=== PATIENT | female | born 1950 | race African-American/Black ===

== ENCOUNTER 2022-02-02 15:53 | Emergency (ER) | payer SELFPAY ==
[~2022-02-02] VITALS: Ht 165.1 cm; Wt 100.0 kg
[2022-02-02 16:18] VITALS: BP 190/85
[2022-02-02] MEDS: HYDROcodone/APAP 5/325MG 1 TAB TABLET PO ONE (16:46)
--- NOTE | 2022-02-02 16:53 | PHYS DOC ---
Past Medical History Past Medical History: DVT Past Surgical History: No Surgical History Smoking Status: Never Smoker Alcohol Use: Heavy Additional Information: WINE DAILY General Adult EDM: Chief Complaint: LOWER EXT PAIN HPI: HPI: Patient is a 72 year old female with history of DVT to the left lower extremity currently not on blood thinners presented to the ED today complaining of 10 out of 10 left calf pain, symptoms have been going on for 2 weeks. Patient describes the pain as sharp and tight. Denies any fever. Denies any chest pain or shortness of breath. Review of Systems: Review of Systems: Constitutional: Denies fever or chills. [] Eyes: Denies change in visual acuity. [] HENT: Denies nasal congestion or sore throat. [] Respiratory: Denies cough or shortness of breath. [] Cardiovascular: Denies chest pain or edema. [] GI: Denies abdominal pain, nausea, vomiting, bloody stools or diarrhea. [] : Denies dysuria. [] Musculoskeletal: Reports left calf pain denies back pain Integument: Denies rash. [] Neurologic: Denies headache, focal weakness or sensory changes. [] [] Psychiatric: Denies depression or anxiety. [] Heart Score: C/O Chest Pain: N/A Risk Factors: Risk Factors: DM, Current or recent (<one month) smoker, HTN, HLP, family history of CAD, obesity. Risk Scores: Score 0 - 3: 2.5% MACE over next 6 weeks - Discharge Home Score 4 - 6: 20.3% MACE over next 6 weeks - Admit for Clinical Observation Score 7 - 10: 72.7% MACE over next 6 weeks - Early Invasive Strategies Current Medications: Current Medications Medications (Trade) Dose Ordered Sig/[facility] Start Time Stop Time Status Last Admin Dose Admin Acetaminophen/ Hydrocodone Bitart (Lortab 5/325) 1 tab 1X ONCE 02/02/22 16:15 02/02/22 16:40 DC 02/02/22 16:46 1 TAB Allergies: Allergies: Allergies Coded Allergies Type Severity Reaction Last Updated Verified No Known Drug Allergies 02/02/22 No Physical Exam: PE: Constitutional: Well developed, well nourished, no acute distress, non-toxic appearance. [] HENT: Normocephalic, atraumatic, bilateral external ears normal, oropharynx moist, no oral exudates, nose normal. [] Eyes: PERRLA, EOMI, conjunctiva normal, no discharge. [] Neck: Normal range of motion, no tenderness, supple, no stridor. [] Cardiovascular:Heart rate regular rhythm, no murmur [] Lungs & Thorax: Bilateral breath sounds clear to auscultation [] Abdomen: Bowel sounds normal, soft, no tenderness, no masses, no pulsatile masses. [] Skin: Warm, dry, no erythema, no rash. [] Back: No tenderness, no CVA tenderness. [] Extremities: Left lower extremity with no obvious deformity. Edema noted diffusely to the left lower extremity with warmth, positive Homans' sign to the LLE, full range of motion to the left lower extremity, +2 left pedal pulse. Cap refill less than 2 seconds in left lower extremity. Neurologic: Alert and oriented X 3, normal motor function, normal sensory function, no focal deficits noted. [] Psychologic: Affect normal, judgement normal, mood normal. [] Current Patient Data: Vital Signs: Vital Signs Date Time Temp Pulse Resp B/P (MAP) Pulse Ox O2 Delivery O2 Flow Rate FiO2 02/02/22 16:46 18 99 Room Air 02/02/22 16:18 98.2 88 190/85 (120) 98.2 EKG: EKG: [] Radiology/Procedures: Radiology/Procedures: [] Course & Med Decision Making: Course & Med Decision Making Pertinent Labs and Imaging studies reviewed. (See chart for details) This a 72-year-old female patient presenting to the ED today complaining of left calf pain, symptoms for 2 weeks. History of DVT. Venous Doppler of the left lower extremity is positive for venous thrombosis, sp tammy to Dr. Singleton. He requested we give patient Lovenox and discharge patient on Eliquis. Her blood pressure was also 190/85, patient states she has not had any doctors visit for a while and has not been aware of her blood pressure being high, she has no chest pain or headache. She was discharged to home and provided the doctors list for follow-up Bette Disclaimer: Bette Disclaimer: This electronic medical record was generated, in whole or in part, using a voice recognition dictation system. Departure Departure Impression: Primary Impression: DVT, lower extremity Qualified Codes: I82.432 - Acute embolism and thrombosis of left popliteal vein Additional Impression: High blood pressure Qualified Codes: I10 - Essential (primary) hypertension Disposition: HOME / SELF CARE / HOMELESS Condition: STABLE Patient Instructions: Deep Vein Thrombosis, Hypertension Additional Instructions: You have a blood clot in your left lower extremity. Please ensure you take the blood thinner as prescribed. Your blood pressure is also running high. Please establish care with a primary care doctor from the list provided in follow-up as soon as possible. Scripts Apixaban (ELIQUIS) 5 Mg Tablet 5 MG PO DAILY, #30 TAB Please give patient starter pack Prov: KARTHIK CLEMENS APRN 02/02/22 KARTHIK CLEMENS APRN February 02, 2022 16:53
[2022-02-02] MEDS ORDERED: APIX5TAB PO (18:54)
--- NOTE | 2022-02-03 07:48 | RAD ---
Left Lower Extremity Venous Doppler Ultrasound History: Reason: LLE pain hx of DVT / Spl. Instructions: / History: Comparison: None Procedure: Color flow, duplex, spectral analysis and 2D images are obtained with and without compress ion in the area of the common femoral vein, superficial femoral vein - femoral vein junction, main fe moral vein (superficial femoral vein) and popliteal vein. Veins of the proximal calf are also imaged. Findings: There is nonocclusive thrombus in the mid left SFV and occlusive thrombus in the distal SFA popliteal and proximal PTV's. Impression: Study is positive for deep venous thrombosis. Electronically signed by: Jamir Farah III, MD (02/02/2022 5:14 PM) [facility]
== END 2022-02-02 19:25 | disposition home or self-care (01) ==
LOC: ER 15:53
DX: I82.432 Acute embolism and thrombosis of left popliteal vein (principal); I10 Essential (primary) hypertension; Z86.718 Personal history of other venous thrombosis and embolism; F10.20 Alcohol dependence, uncomplicated; Y90.9 Presence of alcohol in blood, level not specified
CPT/HCPCS: 93971; 96372; 99284; J1650; 99283